=== PATIENT | male | born 1970 | race Caucasian/White ===

== ENCOUNTER 2021-01-15 13:06 | Emergency (ER) | payer SELFPAY ==
[2021-01-15 13:17] VITALS: BP 150/85; PULSE 98; RESP 16; TEMP 36.8; O2SAT 100; BMI 33.9
--- NOTE | 2021-01-15 13:30 | HMH.EDUTC ---
[facility] [place] Impression: Ingrown right greater toenail, Tinea pedis of right foot Disposition: Home, Self-Care Condition on Discharge: Good Instructions: DI for Ingrown Toenail Additional Instructions: Rest the extremity, Elevate the extremity as tolerated while you are resting. Take ibuprofen for pain. I sent in a prescription to your pharmacy. Follow up with Dr. Shay (podiatry). I put in a referral but you need to call his office and schedule an appointment. Follow up with your regular doctor. GO TO THE ER FOR ANY WORSENING SYMPTOMS Prescriptions: Clotrimazole [Athlete's Foot] 1 applicatio TP BID 14 Days #1 tube Transmission Status: Received by [facility] Amoxicillin/Potassium Clav [Augmentin 875-125 Tablet] 1 tab PO Q12H 10 Days #20 tab Transmission Status: Received by [facility] Mupirocin [Bactroban 2% Ointment 22gm tube] 1 applicatio TP TID 7 Days #1 tube Transmission Status: Received by [facility] Referrals: PCP,No [Primary Care Provider] - Time of Disposition: 13:37 Medical Decision Making - Medical Records Medical records reviewed: No: I reviewed the patient's medical records. - Johnny Inquiry Pt receiving controlled substance: No Vital Signs: 01/15/21 13:17 01/15/21 13:58 Temperature 98.2 F 98.2 F Temperature Source Oral Oral Pulse Rate 87 Pulse Rate [Right] 98 H Respiratory Rate 16 16 Blood Pressure 152/80 H Blood Pressure [Right Arm] 150/85 H Blood Pressure Mean [Right Arm] 106 Blood Pressure Source Automatic Cuff Blood Pressure Source [Right Arm] Automatic Cuff Blood Pressure Position Sitting Blood Pressure Position [Right Arm] Sitting 02 Sat by Pulse Oximetry 100 Oxygen Delivery Method Room Air Room Air [facility] [place] - General Stated complaint: ingrown toenail,right foot Time Seen by Provider: 01/15/21 13:30 Mode of Arrival: Ambulatory Source of Information: Patient Limitations: No Limitations Description of Symptoms (Recalled from Triage Doc. by RN): pt c/o ingrown toenail on his right great toe HEENT Symptoms (Recalled from RN notes): No Resp Symptoms (Recalled from RN notes): No Skin Symptoms (Recalled from RN notes): No MS Symptoms (Recalled from RN notes): No Functional Status (Recalled from RN notes): na - History of Present Illness Provider Complaint: He states that he has had an ingrown nail on his right great toe for the past 2 weeks. It is starting to get infected now. He has a history of getting ingrown nails, but he hasn't had one in several years. He denies any history of diabetes. - Related Data Previous Rx's Medication Instructions Recorded Amoxicillin/Potassium Clav 1 tab PO Q12H 10 Days #20 tab 01/15/21 [Augmentin 875-125 Tablet] Clotrimazole [Athlete's Foot] 1 applicatio TP BID 14 Days #1 tube 01/15/21 Mupirocin [Bactroban 2% Ointment 1 applicatio TP TID 7 Days #1 tube 01/15/21 22gm tube] Allergies Allergy/AdvReac Type Severity Reaction Status Date / Time No Known Allergies Allergy Unverified 10/05/17 14:12 - Worker's Comp Is this a Worker's Comp case?: No [facility] [place] History - Hepatitis A Screen Drug use history?: No High risk sexual behaviors?: No History of sexually transmitted infection?: No Currently employed?: No Childcare worker?: No Do you have indoor plumbing?: Yes Do you have electricity?: Yes Attestation statement:: This patient has been screened for Hepatitis A risk factors. I have reviewed the patient's past medical history: Yes ROS Obtained: Yes All systems reviewed & no additional complaints - Constitutional Constitutional: Denies chills, Denies fever(s), Denies poor appetite, Denies malaise - Eyes Eyes: Denies eye discharge - Musculoskeletal Musculoskeletal: Denies joint pain - Integumentary/Breasts Skin/Breast: Reports as per HPI - Neurologic Neurologic: Denies tingling/numbness/burning sensations Physical Exam - General
[2021-01-15 13:58] VITALS: BP 152/80; PULSE 87; RESP 16; TEMP 36.8; O2SAT 98
== END 2021-01-15 13:59 | disposition home or self-care (01) ==
PROVIDERS: Emergency Provider Nurse Practitioner Family
DX: L60.0 Ingrowing nail (principal); B35.3 Tinea pedis
CPT/HCPCS: 99202; G0463

== ENCOUNTER 2021-02-11 11:12 | Emergency (ER) | payer OTHER, SELFPAY ==
[2021-02-11 12:01] VITALS: BP 114/88; PULSE 63; RESP 18; TEMP 36.8; O2SAT 98; BMI 32.5
--- NOTE | 2021-02-11 12:14 | HMH.EDUTC ---
[facility] [place] Disposition Clinical Impression: Low back pain with sciatica Qualifiers: Chronicity: unspecified Back pain laterality: left Sciatica laterality: sciatica of left side Qualified Code(s): M54.42 - Lumbago with sciatica, left side Disposition: Home, Self-Care Condition on Discharge: Good Instructions: Low Back Pain, DI for Low Back Pain, DI for Sciatica, DI for Back Pain With Sciatica Additional Instructions: *Etodolac josee 6 hours with meal as needed for pain/inflammation *Not additional anti-inflammatory like motrin, ibuprofen aleve, advil with the above amount of Etodolac. You can still take Tylenol every 4 hours as needed if you need something else for pain *Ice 20 minutes every 2 hours for the first 48 hours after the initial injury followed by moist heat every 20 minutes 3-4 times a day to affected area *Muscle relaxer as prescribed as needed for muscle spasms but remember, it WILL cause drowsiness You cannot take it and drive, operate machinery or care for small children. *Keep this area active, no movement leads to more stiffness, However take it easy and avoid heavy lifting pushing or pulling *Follow up with you family doctor if no improvement for further treatment Start steriod dose pack tomorrow Follow up with Family Doctor or Chiropractor for further treatment and evaluation Return if needed Straight to ER if any life threatening symptoms Prescriptions: Etodolac [Etodolac 200mg Cap*] 200 mg PO Q6H PRN #20 cap PRN Reason: Moderate Pain Transmission Status: Received by [facility] methocarbamoL [Methocarbamol 500mg Tablet] 500 mg PO BID PRN #10 tab PRN Reason: Muscle Spasm Transmission Status: Received by [facility] predniSONE [Prednisone 5mg Tab Dose-Pack] 5 mg PO UD DOSE PK #21 pack Transmission Status: Received by [facility] Referrals: PCP,No [Primary Care Provider] - As needed Forms: Work/School Release Time of Disposition: 12:27 Medical Decision Making - Johnny Inquiry Pt receiving controlled substance: No Johnny was queried for this patient: No Vital Signs: 02/11/21 12:01 02/11/21 12:46 Temperature 98.3 F 98.3 F Temperature Source Oral Oral Pulse Rate 63 Pulse Rate [Right Brachial] 63 Respiratory Rate 18 18 Blood Pressure 114/88 Blood Pressure [Right Arm] 114/88 Blood Pressure Mean [Right Arm] 96 Blood Pressure Source Automatic Cuff Blood Pressure Source [Right Arm] Automatic Cuff Blood Pressure Position Sitting Blood Pressure Position [Right Arm] Sitting 02 Sat by Pulse Oximetry 98 Oxygen Delivery Method Room Air Room Air Orders (Tests/Meds): ED MEDICATIONS Discontinued Medications Generic Name Dose Route Start Last Admin Trade Name Marilee PRN Reason Stop Dose Admin Methylprednisolone Sodium Succinate 125 mg 02/11/21 12:21 02/11/21 12:30 Methylprednisolone Sod Succ 125mg Vial IM 02/11/21 12:22 125 mg ONCE ONE Administration [facility] [place] HPI - General Stated complaint: Left leg & hip pain Time Seen by Provider: 02/11/21 12:14 Mode of Arrival: Ambulatory Source of Information: Patient Limitations: No Limitations Description of Symptoms (Recalled from Triage Doc. by RN): PT REPORTS PAIN IN LEFT LOWER BACK THAT RADIATES DOWN LEFT LEG HEENT Symptoms (Recalled from RN notes): No Resp Symptoms (Recalled from RN notes): No Skin Symptoms (Recalled from RN notes): No MS Symptoms (Recalled from RN notes): Yes Functional Status (Recalled from RN notes): WNL - History of Present Illness Provider Complaint: Patient states that he has low back problems for years and woke up yesterday with pain in his left buttock area that radiates down into left leg States that pain is worse if he lays or sits on that side and feels like a toothache States that he took 800mg of Ibuprofen this morning around 10 but hasnt helped it much Denies loss of control of bowel or bladder - Related Data Previous Rx's Medication Instructions Recorded Lara
[2021-02-11 12:46] VITALS: BP 114/88; PULSE 63; RESP 18; TEMP 36.8; O2SAT 98
== END 2021-02-11 12:50 | disposition home or self-care (01) ==
PROVIDERS: Emergency Provider Nurse Practitioner
DX: M54.42 Lumbago with sciatica, left side (principal)
CPT/HCPCS: 96372; 99202; G0463

== ENCOUNTER 2021-10-15 09:22 | Emergency (ER) | payer OTHER, SELFPAY ==
[2021-10-15 10:50] VITALS: BP 0/0; PULSE 0; RESP 0; TEMP -17.7; TEMP 0
== END 2021-10-15 10:55 | disposition left against medical advice (07) ==
LOC: UTC 09:24
PROVIDERS: Emergency Provider Nurse Practitioner
DX: Z53.21 Procedure and treatment not carried out due to patient leaving prior to being seen by health care provider (principal)

== ENCOUNTER 2021-10-15 14:06 | Emergency (ER) | payer OTHER, SELFPAY ==
[2021-10-15 14:34] VITALS: BP 139/75; PULSE 88; RESP 18; TEMP 36.8; O2SAT 97; BMI 29.5
--- NOTE | 2021-10-15 14:41 | XR_ITS ---
PROCEDURE: XR KNEE LT 3V CLINICAL INDICATION: Left knee pain COMPARISON: No exams were available for comparison FINDINGS: No fracture or dislocation. No lytic or blastic change. There is normal mineralization. Minimal osteoarthritic change medial compartment Other findings:None. IMPRESSION: Minimal osteoarthritic change Dictated by: Emmanuel Wright MD 10/15/2021 15:03 Emmanuel Wright MD in OV 10/15/2021 15:03
--- NOTE | 2021-10-15 16:13 | HMH.EDUTC ---
[facility] [place] Clinical Impression: Pseudogout Disposition: Home, Self-Care Condition on Discharge: Good Instructions: Gout, DI for Gout, How to Apply an Luis Armando Wrap, Indomethacin Additional Instructions: Take medication as prescribed Follow up with family doctor if no improvement Straight to ER if any life threatening symptoms Return if needed Prescriptions: Indomethacin 50 mg PO TID #15 cap Transmission Status: Received by [facility] Referrals: Provider,Referral, MD [Primary Care Provider] - As needed Forms: Work/School Release Time of Disposition: 17:06 Medical Decision Making - Johnny Inquiry Pt receiving controlled substance: No Johnny was queried for this patient: No Vital Signs: 10/15/21 14:34 10/15/21 17:05 Temperature 98.2 F 98.2 F Temperature Source Oral Pulse Rate 88 Pulse Rate [Right Brachial] 88 Respiratory Rate 18 18 Blood Pressure 139/75 Blood Pressure [Right Arm] 139/75 Blood Pressure Mean [Right Arm] 96 Blood Pressure Source [Right Arm] Automatic Cuff Blood Pressure Position [Right Arm] Sitting 02 Sat by Pulse Oximetry 97 Oxygen Delivery Method Room Air - Lab Data Lab results reviewed: Yes: I reviewed the patient's lab results. Lab Results 10/15/21 16:17: Uric Acid 7.4 Orders (Tests/Meds): ED MEDICATIONS Discontinued Medications Generic Name Dose Route Start Last Admin Trade Name Marilee PRN Reason Stop Dose Admin Methylprednisolone Sodium Succinate 125 mg 10/15/21 17:01 10/15/21 17:04 Methylprednisolone Sod Succ 125mg Vial IM 10/15/21 17:02 125 mg ONCE ONE Administration - Radiology Data #1 Image(s): Knee Image Reviewed: Yes I have reviewed radiologist's interpretation IMPRESSION: Minimal osteoarthritic change [facility] [place]PI - General Stated complaint: left knee pain, no accident Time Seen by Provider: 10/15/21 16:13 Mode of Arrival: Ambulatory Source of Information: Patient Limitations: No Limitations Description of Symptoms (Recalled from Triage Doc. by RN): Left knee swelling x1 week constant pain - no known injury HEENT Symptoms (Recalled from RN notes): No Resp Symptoms (Recalled from RN notes): No Skin Symptoms (Recalled from RN notes): No MS Symptoms (Recalled from RN notes): Yes Functional Status (Recalled from RN notes): wnl - History of Present Illness Provider Complaint: Patient state that he has bad knees State that he works in [employer] and on his feet alot and he has been having swelling and mild redness to his left knee States that he hasnt done anything to hurt it that he is aware of States that today it was hurting worse - Related Data Previous Rx's Medication Instructions Recorded Amoxicillin/Potassium Clav 1 tab PO Q12H 10 Days #20 tab 01/15/21 [Augmentin 875-125 Tablet] Clotrimazole [Athlete's Foot] 1 applicatio TP BID 14 Days #1 tube 01/15/21 Mupirocin [Bactroban 2% Ointment 1 applicatio TP TID 7 Days #1 tube 01/15/21 22gm tube] Etodolac [Etodolac 200mg Cap*] 200 mg PO Q6H PRN #20 cap 02/11/21 methocarbamoL [Methocarbamol 500mg 500 mg PO BID PRN #10 tab 02/11/21 Tablet] predniSONE [Prednisone 5mg Tab 5 mg PO UD DOSE PK #21 pack 02/11/21 Dose-Pack] Indomethacin 50 mg PO TID #15 cap 10/15/21 Allergies Allergy/AdvReac Type Severity Reaction Status Date / Time No Known Allergies Allergy Verified 10/15/21 14:40 - Worker's Comp Is this a Worker's Comp case?: No [facility] History - Hepatitis A Screen Drug use history?: No High risk sexual behaviors?: No History of sexually transmitted infection?: No Currently employed?: No Childcare worker?: No Do you have indoor plumbing?: Yes Do you have electricity?: Yes Attestation statement:: This patient has been screened for Hepatitis A risk factors. I have reviewed the patient's past medical history: Yes ROS Obtained: Yes All systems reviewed & no additional complaints, Yes Systems reviewed as appropriate & no additi
[2021-10-15 16:45] LABS: Uric Acid 7.4 mg/dl (3.5-8.5)
[2021-10-15 17:05] VITALS: BP 139/75; PULSE 88; RESP 18; TEMP 36.8; O2SAT 97
== END 2021-10-15 17:12 | disposition home or self-care (01) ==
PROVIDERS: Emergency Provider Nurse Practitioner
DX: M10.062 Idiopathic gout, left knee (principal)
CPT/HCPCS: 73562; 84550; 96372; 99202; G0463

== ENCOUNTER → 2022-04-29 15:01 | Outpatient (CLI) | payer BC, SELFPAY ==
[2022-04-29 14:07] LABS: Basophils # 0.1 K/mm3 (0-0.2); Basophils % 0.9 % (0.1-2.0); Eosinophils # 0.1 K/mm3 (0.0-0.4); Eosinophils % 1.1 % (0.1-12.0); Hematocrit 45.7 % (42.0-52.0); Hemoglobin 14.8 g/dL (14.1-18.0); Lymphocytes # 1.6 K/mm3 (0.7-4.5); Lymphocytes % 23.9 % (10-50); Mean Corpuscular HGB Conc 32.4 g/dL (31.8-35.4); Mean Corpuscular Hemoglobin 30.9 pg (27.0-31.2); Mean Corpuscular Volume 95.3 fl (80-94); Mean Platelet Volume 10.7 fl (7.4-10.4); Monocytes # 0.4 K/mm3 (0.1-1.0); Monocytes % 6.1 % (1.7-9.3); Neutrophils # 4.6 K/mm3 (1.8-7.8); Platelet Count 289 K/mm3 (142-424); Red Cell Distribution Width 13.1 % (11.5-17.5); White Blood Count 6.7 K/mm3 (4.8-10.8)
[2022-04-29 14:08] LABS: Chloride 109 mmol/L (98-107); Potassium 4.2 mmoL/L (3.5-5.1); Sodium 140 mmol/L (136-145)
[2022-04-29 14:10] LABS: Alanine Aminotransferase 20 U/L (12-78); Aspartate Amino Transferase 23 U/L (17-59); Blood Urea Nitrogen 14 mg/dl (9-20); Estimated Glomerular Filt Rate 89 ml/min (>60); GFR (African American) 108 ML/MIN (>60)
[2022-04-29 14:11] LABS: Albumin Level 4.1 g/dl (3.5-5.0); Albumin/Globulin Ratio 1.7 (1.1-1.8); Alkaline Phosphatase 70 U/L (38-126); Anion Gap 10.2 mEq/L (5-15); Bilirubin,Total 0.4 mg/dl (0.2-1.3); Calcium 9.4 mg/dl (8.4-10.2); Carbon Dioxide 25 mmol/L (22.0-30.0); Chol/HDL Ratio 5.6 (1-3.5); Cholesterol 180 mg/dl (140-200); Globulin 2.4 g/dL (1.3-3.2); Glucose 106 mg/dl (74-100); HDL Cholesterol 32 mg/dl (40-60); Total Protein,Serum 6.5 g/dl (6.3-8.2); Triglycerides 167 mg/dl (30-150); VLDL Cholesterol 33 mg/dL (0-40)
[2022-04-29 14:23] LABS: Direct LDL Cholesterol 116.57 mg/dL (100-129)
[2022-04-29 14:26] LABS: 25-OH Vitamin D, Total 31.2 ng/mL (30-100)
[2022-04-29 14:43] LABS: Thyroid Stimulating Hormone 1.78 uIU/mL (0.465-4.68)
[2022-04-29 16:01] LABS: Prostate Specific Ag Screen 1.5 ng/ml (0.0-4.0)
== END ==
PROVIDERS: PCP Physician Assistant; Visit Provider Physician Assistant
DX: Z00.00 Encounter for general adult medical examination without abnormal findings (principal); E66.3 Overweight; Z68.31 Body mass index [BMI] 31.0-31.9, adult; Z76.89 Persons encountering health services in other specified circumstances; Z12.5 Encounter for screening for malignant neoplasm of prostate
CPT/HCPCS: 80053; 80061; 82306; 84443; 85025; G0103

== ENCOUNTER 2023-12-30 21:48 | Inpatient (IN) | payer BC, SELFPAY ==
[2023-12-30] VITALS (7 sets, daily range): BP systolic 119–139; BP diastolic 80–87; PULSE 89–120; RESP 18–22; TEMP 36.7–36.9; O2SAT 90–96; BMI 32.5
--- NOTE | 2023-12-30 22:08 | CT_ITS ---
PROCEDURE INFORMATION: Exam: CT Abdomen And Pelvis With Contrast Exam date and time: 12/30/2023 10:36 PM Age: 53 years old Clinical indication: Abdominal pain; Additional info: Lower abd pain TECHNIQUE: Imaging protocol: Computed tomography of the abdomen and pelvis with contrast. Radiation optimization: All CT scans at this facility use at least one of these dose optimization techniques: automated exposure control; mA and/or kV adjustment per patient size (includes targeted exams where dose is matched to clinical indication); or iterative reconstruction. Contrast material: ISOVUE; Contrast volume: 75 ml; Contrast route: IV; COMPARISON: No relevant prior studies available. FINDINGS: Liver: Mild fatty liver infiltration. No mass. Gallbladder and bile ducts: Normal. No calcified stones. No ductal dilation. Pancreas: Normal. No ductal dilation. Spleen: Normal. No splenomegaly. Adrenal glands: Normal. No mass. Kidneys and ureters: Normal. No hydronephrosis. Stomach and bowel: Distended stomach and dilated fluid-filled loops of small bowel with relative transition point to decompressed small bowel loops in right lower quadrant. Appendix: No evidence of appendicitis. Intraperitoneal space: Unremarkable. No free air. No significant fluid collection. Vasculature: Unremarkable. No abdominal aortic aneurysm. Lymph nodes: Unremarkable. No enlarged lymph nodes. Urinary bladder: Unremarkable as visualized. Reproductive: Unremarkable as visualized. Bones/joints: Unremarkable. No acute fracture. Soft tissues: Unremarkable. IMPRESSION: 1. Distended stomach and dilated loops of small bowel with relative decompression in right lower quadrant. Although possibly representing sequela of early small bowel obstruction, query symptoms of viral gastroenteritis. Correlation recommended. 2. Mild fatty liver infiltration.
--- NOTE | 2023-12-30 22:13 | ED_ITS ---
Discharge Plan Disposition Patient Disposition: Admitted Clinical Impressions Clinical Impression: Intractable abdominal pain, Nausea & vomiting Discharge ED Provider: Abram Garcia General Adult HPI <Abram Garcia MD - Last Filed: 12/30/23 22:18> General Chief complaint: Abdominal Pain Stated complaint: abd pain Time Seen by Provider: 12/30/23 22:03 Mode of Arrival: Ambulatory Source of Information: Patient Limitations: No Limitations Description of Symptoms (Recalled from ER Triage Doc. by RN): Pt presents to ED for ABD pain that started around lunch time. Pt states he had diarrhea earlier, took Pepto and got relief. Pt states nothing stops the pain and it runs all the way across his lower abdomen. Pt rates pain 9/10. History of Present Illness HPI narrative: 53-year-old presents today with lower abdominal pain and diarrhea. States the pain started suddenly and is progressively worsened over the lower abdomen. No history of colitis or diverticulitis. No constipation preceding this no hematuria frequency urgency or other urinary symptoms. Denies any significant past medical problems. Related Data Allergies Allergy/AdvReac Type Severity Reaction Status Date / Time No Known Allergies Allergy Verified 04/29/22 08:26 PFS <Abram Garcia MD - Last Filed: 12/30/23 22:18> [facility] Disclaimer: The information contained in this section may have been updated after the patient was seen, as this information can be updated by other users. Social History Smoking Status: Current every day smoker alcohol intake: former current occupational status: previously employed Travel in the last 8 weeks: None <Abram Garcia MD - Last Filed: 12/30/23 22:18> ROS Obtained: Yes All systems reviewed & no additional complaints except as documented Physical Exam <Abram Garcia MD - Last Filed: 12/30/23 22:18> General General appearance: alert and in no apparent distress Respiratory Respiratory exam: Present normal lung sounds bilaterally and respiratory distress Cardiovascular Cardiovascular exam: Present regular rate and normal rhythm Abdominal Exam Abdominal exam: Present distention, tenderness, guarding, rebound and other (Focally tender lower abdomen but patient does have rebound and guarding throughout the rest of the abdomen) Neurological Exam Neurological exam: Present alert and oriented X3 Medical Decision Making <Abram Garcia MD - Last Filed: 12/30/23 22:18> Johnny Inquiry Pt receiving controlled substance: No Vital Signs: 12/30/23 21:49 12/30/23 22:01 12/30/23 22:23 Temperature 98.3 F Temperature Source Oral Pulse Rate 101 H 94 H Pulse Rate [Left] 120 H Respiratory Rate 22 Blood Pressure 128/84 139/83 Blood Pressure [Right Arm] 133/83 Blood Pressure Mean 93 92 Blood Pressure Mean [Right Arm] 99 Blood Pressure Source [Right Arm] Automatic Cuff 02 Sat by Pulse Oximetry 96 90 L 96 Oxygen Delivery Method Room Air 12/30/23 22:30 12/30/23 22:45 Temperature Temperature Source Pulse Rate 94 H 98 H Pulse Rate [Left] Respiratory Rate Blood Pressure 125/87 127/80 Blood Pressure [Right Arm] Blood Pressure Mean 96 91 Blood Pressure Mean [Right Arm] Blood Pressure Source [Right Arm] 02 Sat by Pulse Oximetry 90 L 91 L Oxygen Delivery Method Lab Data Lab Results 12/30/23 22:12: WBC 10.3, RBC 4.83, Hgb 15.2, Hct 45.0, MCV 93.2, MCH 31.4 H, MCHC 33.7, RDW 12.9, Plt Count 248, MPV 8.8, Neut % (Auto) 90.2 H, Lymph % (Auto) 5.7 L, [place] % (Auto) 2.9, Eos % (Auto) 0.9, Baso % (Auto) 0.3, Neut # (Auto) 9.3 H, Lymph # (Auto) 0.6 L, [place] # (Auto) 0.3, Eos # (Auto) 0.1, Baso # (Auto) 0.0, Total Counted 100, Neutrophils % (Manual) 90 H, Lymphocytes % (Manual) 6 L, Monocytes % (Manual) 4, Platelet Estimate Normal, RBC Morphology Normal, Sodium 138, Potassium 3.8, Chloride 109 H, Carbon Dioxide 22, Anion Gap 10.8, BUN 22 H, Creatinine 1.00, Estimated Creat Clear 135, Estimated GFR 79, Est GFR ( Amer) 95, Glucose 115 H, Calcium 8.8, Total Bilirubin 0.8, AST 31, ALT 33, Alkaline Phosphatase 66, Total Protein 6.6, Albumin 4.1, Globulin 2.5, Albumin/Globulin Ratio 1.6, Lipase 145 12/30/23 22:12 12/30/23 22:12 Orders (Tests/Meds): ED MEDICATIONS Generic Name Dose Route Start Last Admin Trade Name Marilee PRN Reason Stop Dose Admin Acetaminophen 650 mg 12/30/23 23:24 Acetaminophen 325mg Tab PO 01/29/24 23:23 Q4HP PRN Fever or Mild Pain (1-3) Morphine Sulfate 2 mg 12/30/23 23:24 Morphine 2mg/Ml Syringe IV 01/29/24 23:23 Q2HP PRN Severe Pain (7-10) Sodium Chloride 10 ml 12/30/23 22:40 12/30/23 22:41 Sodium Chloride 0.9% 10ml Syr (Rad Only) IV 01/29/24 22:39 10 ml NEEDED PRN Administration Maintain IV Site Discontinued Medications Generic Name Dose Route Start Last Admin Trade Name Fresarahy PRN Reason Stop Dose Admin Lactated Ringer's 1,000 mls @ 999 mls/hr 12/30/23 22:15 12/30/23 22:19 Lactated Ringer's 1000 Ml Bag IV 12/30/23 23:15 999 mls/hr .Q1H1M [place] Administration Iopamidol 75 ml 12/30/23 22:40 12/30/23 22:41 Iopamidol-370 (76%);100ml Bottle IV 12/30/23 22:41 75 ml ONCE ONE Administration Ketorolac Tromethamine 15 mg 12/30/23 22:08 12/30/23 22:20 Ketorolac 30mg/Ml Vial IV 12/30/23 22:09 15 mg ONCE ONE Administration Ondansetron HCl 4 mg 12/30/23 22:08 12/30/23 22:20 Ondansetron 4mg/2ml Vial IV 12/30/23 22:09 4 mg ONCE ONE Administration ORDERS Category Date Time Status CT abdomen pelvis w con Stat Cat Scan 12/30/23 22:08 Completed CBC w/Auto Diff [Complete Blood Count Auto Diff] Stat Lab 12/30/23 22:12 Completed CMP [Comprehensive Metabolic Panel] Stat Lab 12/30/23 22:12 Completed Complete Blood Count Auto Diff AMLAB Lab 12/31/23 06:00 Ordered Comprehensive Metabolic Panel AMLAB Lab 12/31/23 06:00 Ordered Lactic Acid Stat Lab 12/30/23 22:08 Ordered Lipase Stat Lab 12/30/23 22:12 Completed Magnesium AMLAB Lab 12/31/23 06:00 Ordered Medical Decision Narrative: 53-year-old male with above history and physical. Concerning for possible peritonitis and perforation given the sudden onset of his symptoms and localization of the pain that initially started in the lower abdomen now with diffuse pain and some rebound and guarding. CT scan of the abdomen and pelvis with IV contrast have been ordered to specifically look for further pathology such as perforated viscus include diverticulitis perforated ulcer colitis etc. Will give IV fluids pain medicine nausea medicine he specifically asked does not give him opiates as he is a recovering addict therefore Toradol and Zofran fluids have been administered. <Yumiko Marsh, DO - Last Filed: 12/30/23 23:35> Vital Signs: 12/30/23 21:49 12/30/23 22:01 12/30/23 22:23 Temperature 98.3 F Temperature Source Oral Pulse Rate 101 H 94 H Pulse Rate [Left] 120 H Respiratory Rate 22 Blood Pressure 128/84 139/83 Blood Pressure [Right Arm] 133/83 Blood Pressure Mean 93 92 Blood Pressure Mean [Right Arm] 99 Blood Pressure Source [Right Arm] Automatic Cuff 02 Sat by Pulse Oximetry 96 90 L 96 Oxygen Delivery Method Room Air 12/30/23 22:30 12/30/23 22:45 Temperature Temperature Source Pulse Rate 94 H 98 H Pulse Rate [Left] Respiratory Rate Blood Pressure 125/87 127/80 Blood Pressure [Right Arm] Blood Pressure Mean 96 91 Blood Pressure Mean [Right Arm] Blood Pressure Source [Right Arm] 02 Sat by Pulse Oximetry 90 L 91 L Oxygen Delivery Method Lab Data Lab Results 12/30/23 22:12: WBC 10.3, RBC 4.83, Hgb 15.2, Hct 45.0, MCV 93.2, MCH 31.4 H, MCHC 33.7, RDW 12.9, Plt Count 248, MPV 8.8, Neut % (Auto) 90.2 H, Lymph % (Auto) 5.7 L, [place] % (Auto) 2.9, Eos % (Auto) 0.9, Baso % (Auto) 0.3, Neut # (Auto) 9.3 H, Lymph # (Auto) 0.6 L, [place] # (Auto) 0.3, Eos # (Auto) 0.1, Baso # (Auto) 0.0, Total Counted 100, Neutrophils % (Manual) 90 H, Lymphocytes % (Manual) 6 L, Monocytes % (Manual) 4, Platelet Estimate Normal, RBC Morphology Normal, Sodium 138, Potassium 3.8, Chloride 109 H, Carbon Dioxide 22, Anion Gap 10.8, BUN 22 H, Creatinine 1.00, Estimated Creat Clear 135, Estimated GFR 79, Est GFR ( Amer) 95, Glucose 115 H, Calcium 8.8, Total Bilirubin 0.8, AST 31, ALT 33, Alkaline Phosphatase 66, Total Protein 6.6, Albumin 4.1, Globulin 2.5, Albumin/Globulin Ratio 1.6, Lipase 145 Orders (Tests/Meds): ED MEDICATIONS Generic Name Dose Route Start Last Admin Trade Name Freq PRN Reason Stop Dose Admin Acetaminophen 650 mg 12/30/23 23:24 Acetaminophen 325mg Tab PO 01/29/24 23:23 Q4HP PRN Fever or Mild Pain (1-3) Morphine Sulfate 2 mg 12/30/23 23:24 Morphine 2mg/Ml Syringe IV 01/29/24 23:23 Q2HP PRN Severe Pain (7-10) Sodium Chloride 10 ml 12/30/23 22:40 12/30/23 22:41 Sodium Chloride 0.9% 10ml Syr (Rad Only) IV 01/29/24 22:39 10 ml NEEDED PRN Administration Maintain IV Site Discontinued Medications Generic Name Dose Route Start Last Admin Trade Name Freq PRN Reason Stop Dose Admin Lactated Ringer's 1,000 mls @ 999 mls/hr 12/30/23 22:15 12/30/23 22:19 Lactated Ringer's 1000 Ml Bag IV 12/30/23 23:15 999 mls/hr .Q1H1M [place] Administration Iopamidol 75 ml 12/30/23 22:40 12/30/23 22:41 Iopamidol-370 (76%);100ml Bottle IV 12/30/23 22:41 75 ml ONCE ONE Administration Ketorolac Tromethamine 15 mg 12/30/23 22:08 12/30/23 22:20 Ketorolac 30mg/Ml Vial IV 12/30/23 22:09 15 mg ONCE ONE Administration Ondansetron HCl 4 mg 12/30/23 22:08 12/30/23 22:20 Ondansetron 4mg/2ml Vial IV 12/30/23 22:09 4 mg ONCE ONE Administration ORDERS Category Date Time Status CT abdomen pelvis w con Stat Cat Scan 12/30/23 22:08 Completed CBC w/Auto Diff [Complete Blood Count Auto Diff] Stat Lab 12/30/23 22:12 Completed CMP [Comprehensive Metabolic Panel] Stat Lab 12/30/23 22:12 Completed Complete Blood Count Auto Diff AMLAB Lab 12/31/23 06:00 Ordered Comprehensive Metabolic Panel AMLAB Lab 12/31/23 06:00 Ordered Lactic Acid Stat Lab 12/30/23 22:08 Ordered Lipase Stat Lab 12/30/23 22:12 Completed Magnesium AMLAB Lab 12/31/23 06:00 Ordered Medical Decision Narrative: 53-year-old male with above history and physical. Concerning for possible peritonitis and perforation given the sudden onset of his symptoms and localization of the pain that initially started in the lower abdomen now with diffuse pain and some rebound and guarding. CT scan of the abdomen and pelvis with IV contrast have been ordered to specifically look for further pathology such as perforated viscus include diverticulitis perforated ulcer colitis etc. Will give IV fluids pain medicine nausea medicine he specifically asked does not give him opiates as he is a recovering addict therefore Toradol and Zofran fluids have been administered. Maximo DO: On my assumption of care of the patient, he continues to have pain. CT scan concerning for small bowel obstruction versus gastroenteritis. Given the patient's significant intractable pain and inability to tolerate oral intake, decision was made to admit him for observation and serial abdominal exams. I had an interactive discussion with Dr. Childs who accepted the patient for admission. Critical Care <Abram Garcia MD - Last Filed: 12/30/23 22:18> Critical Care Time Critical Care Time: No
[2023-12-30] MEDS: LACTATED RINGERS 1000ML 1,000 ML 999 ML IV (22:19)
[2023-12-30] MEDS: ONDANSETRON 4MG/2ML VIAL 4 MG IV (22:20)
[2023-12-30] MEDS: KETOROLAC 30MG/ML VIAL 15 MG IV (22:20)
[2023-12-30 22:21] LABS: Basophils % 0.3 % (0.1-2.0); Eosinophils # 0.1 K/mm3 (0.0-0.4); Eosinophils % 0.9 % (0.1-12.0); Hemoglobin 15.2 g/dL (14.1-18.0); Lymphocytes # 0.6 K/mm3 (0.7-4.5); Lymphocytes % 5.7 % (10-50); Mean Corpuscular HGB Conc 33.7 g/dL (31.8-35.4); Mean Corpuscular Hemoglobin 31.4 pg (27.0-31.2); Mean Corpuscular Volume 93.2 fl (80-94); Mean Platelet Volume 8.8 fl (7.4-10.4); Monocytes # 0.3 K/mm3 (0.1-1.0); Monocytes % 2.9 % (1.7-9.3); Neutrophils # 9.3 K/mm3 (1.8-7.8); Neutrophils % 90.2 % (37.0-80.0); Platelet Count 248 K/mm3 (142-424); Red Blood Count 4.83 M/mm3 (4.60-6.20); Red Cell Distribution Width 12.9 % (11.5-17.5); White Blood Count 10.3 K/mm3 (4.8-10.8)
[2023-12-30 22:25] LABS: Chloride 109 mmol/L (98-107); Potassium 3.8 mmoL/L (3.5-5.1); Sodium 138 mmol/L (136-145)
[2023-12-30 22:28] LABS: Alanine Aminotransferase 33 U/L (12-78); Albumin Level 4.1 g/dl (3.5-5.0); Albumin/Globulin Ratio 1.6 (1.1-1.8); Alkaline Phosphatase 66 U/L (38-126); Anion Gap 10.8 mEq/L (5-15); Aspartate Amino Transferase 31 U/L (17-59); Bilirubin,Total 0.8 mg/dl (0.2-1.3); Blood Urea Nitrogen 22 mg/dl (9-20); Calcium 8.8 mg/dl (8.4-10.2); Carbon Dioxide 22 mmol/L (22.0-30.0); Creatinine Clearance Estimated 135 mL/min (50-200); Estimated Glomerular Filt Rate 79 ml/min (>60); GFR (African American) 95 ML/MIN (>60); Globulin 2.5 g/dL (1.3-3.2); Glucose 115 mg/dl (74-100); Lipase 145 U/L (23-300); Total Protein,Serum 6.6 g/dl (6.3-8.2)
[2023-12-30 22:35] LABS: MANUAL DIFFERENTIAL MANUAL DIFFERENTIAL (MANUAL DIFF)
[2023-12-30] MEDS: SODIUM CHLORIDE 0.9% 10ML SYR (RAD ONLY) 10 ML IV (22:41)
[2023-12-30] MEDS: IOPAMIDOL-370 (76%);100ML BOTTLE 75 ML IV (22:41)
[2023-12-30 22:49] LABS: Lymphocytes % 6 % (10-50); Monocytes % 4 % (2-9); Neutrophils % 90 % (42-76); Platelet Estimate Normal; RBC Morphology Normal; Total Cells Counted 100
--- NOTE | 2023-12-30 23:25 | P.HP_ITS ---
History of Present Illness *Admission Date: 12/30/23 *Reason for visit:: Abdominal pain, nausea and vomiting *History of present illness: Patient is a 53-year-old male with history of opiate dependence, clean for 4 years, otherwise no significant medical history. Presented to the ER for a bdominal pain that started earlier today. Had an episode of diarrhea earlier today and took some Pepto. Got some relief. Said the pain in his abdomen began a little while later. Was present for 20 minutes or so and got better. Intense at times, rated at 9 out of 10. Had some emesis that helped his stomach feel little bit better. No known sick contacts. No history of colitis or diverticulitis. No blood in his vomit or stool. On evaluation, labs reassuring but exam quite remarkable for significant tenderness. Given CT findings of SBO versus enteritis, medicine was consulted for admission and further management. Patient states he is feeling little better after he arrives to the floor. Is tender throughout the upper abdomen with no guarding but has questionable rebound with palpation right lower quadrant where pain radiates on rebound in the left upper abdomen. Afebrile. Alert and oriented x 4. Requested no opiates due to his history of addiction. [facility] Disclaimer: The information contained in this section may have been updated after the patient was seen, as this information can be updated by other users. Surgical History (Updated 12/31/23 @ 00:41 by Ivania Sousa RN) H/O arthroscopy of knee Social History (Updated 12/31/23 @ 00:41 by Ivania Sousa RN) Smoking Status: Former smoker alcohol intake: former current occupational status: employed and previously employed Travel in the last 8 weeks: None Review of Systems Review of Systems Review of systems (narrative): 14 point review of systems performed, pertinent positives and negatives as per HPI Meds Home Medications and Allergies New Prescriptions to Start Prescriptions: Allergies Allergy/AdvReac Type Severity Reaction Status Date / Time No Known Allergies Allergy Verified 04/29/22 08:26 Exam Data for Last 24 hours Vital signs and Labs for Last 24 Hours: Temp Pulse Resp BP Pulse Ox O2 Del Method 98.3 F 98 H 22 127/80 91 L Room Air 12/30/23 21:49 12/30/23 22:45 12/30/23 21:49 12/30/23 22:45 12/30/23 22:45 12/30/23 21:49 Laboratory Results - last 24 hr 12/30/23 22:12: WBC 10.3, RBC 4.83, Hgb 15.2, Hct 45.0, MCV 93.2, MCH 31.4 H, MCHC 33.7, RDW 12.9, Plt Count 248, MPV 8.8, Neut % (Auto) 90.2 H, Lymph % (Auto) 5.7 L, [place] % (Auto) 2.9, Eos % (Auto) 0.9, Baso % (Auto) 0.3, Neut # (Auto) 9.3 H, Lymph # (Auto) 0.6 L, [place] # (Auto) 0.3, Eos # (Auto) 0.1, Baso # (Auto) 0.0, Total Counted 100, Neutrophils % (Manual) 90 H, Lymphocytes % (Manual) 6 L, Monocytes % (Manual) 4, Platelet Estimate Normal, RBC Morphology N ormal, Sodium 138, Potassium 3.8, Chloride 109 H, Carbon Dioxide 22, Anion Gap 10.8, BUN 22 H, Creatinine 1.00, Estimated Creat Clear 135, Estimated GFR 79, Est GFR ( Amer) 95, Glucose 115 H, Calcium 8.8, Total Bilirubin 0.8, AST 31, ALT 33, Alkaline Phosphatase 66, Total Protein 6.6, Albumin 4.1, Globulin 2.5, Albumin/Globulin Ratio 1.6, Lipase 145 I & O for Last 24 hours: Intake & Output 12/27/23 12/28/23 12/29/23 12/30/23 23:59 23:59 23:59 23:59 Weight 108.862 kg Constitutional Constitutional: no acute distress, obese and cooperative *Routine HEENT Exam Head: Present normocephalic Eye: Present EOMI and PERRL ENT: Present mucous membranes moist *Routine Neck Exam Neck: Present supple; Absent lymphadenopathy *Routine Respiratory Exam Respiratory: Present CTA bilaterally *Routine Cardiovascular Exam Cardiovascular: Present RRR *Routine Abdominal Exam Abdominal: Present soft, normoactive bowel sounds and tenderness (Diffuse, worse in upper abdomen. Tender with palpation through majority of abdomen except for right lower abdomen. Hurts when pressed on right lower abdomen but when let go causes pain in left side of abdomen.); Absent rebound or guarding *Routine Rectal Exam Rectal:: deferred *Routine Genitalia Exam Genitalia:: deferred *Routine Extremities Exam Extremities: Absent cyanosis, clubbing or edema *Routine Skin Exam Skin: Present warm; Absent rash *Routine Neurological Exam Neurological: Present alert, oriented X3 and moving all extremities; Absent altered mental status Assessment and Plan *Assessment and plan (1) Intractable abdominal pain: Status: Acute Category: Medical Code(s): R10.9 - Unspecified abdominal pain (2) Nausea & vomiting: Status: Acute Category: Medical Code(s): R11.2 - Nausea with vomiting, unspecified (3) Gastroenteritis: Status: Acute Category: Medical Code(s): K52.9 - Noninfective gastroenteritis and colitis, unspecified (4) Obesity (BMI 30.0-34.9): Status: Chronic Category: Medical Code(s): E66.9 - Obesity, unspecified Plan 53-year-old male on no current medications. Presented to the ER for intractable abdominal pain, nausea and vomiting. Workup in the ER concerning for gastroenteritis versus early SBO. Given acuity to abdomen and significant findings on exam, medicine was consulted for admission. Discussed case with ER physician, in light of remarkable exam disproportionate to lab findings, request admission for serial exams and monitoring overnight. Medicine agreed to admit. Patient hemodynamically stable on evaluation. Does have tender abdomen with low concern for peritonitis. Problems addressed as follows: Gastroenteritis Intractable abdominal pain Nausea and vomiting - White cell count normal, AST, ALT, alkaline phosphatase within normal range. Lipase normal at 145. Kidney function electrolytes normal with BUN of 22 creatinine 1.0. Repeat CBC, CMP, magnesium ordered for the morning. -Low concern for hepatitis or pancreatitis -CT of abdomen personally reviewed, has a distended stomach with some dilated loops of small bowel. Concerning for early SBO versus gastroenteritis. Patient does report still passing gas. Not concern for shweta obstruction, most suspicious for ileus. -Clear liquid diet, monitor for p.o. intake. -Zofran 4 mg as needed every 8 hours for nausea -Toradol 30 mg IV every 6 hours for severe pain Exam is reassuring, tolerating p.o. intake, labs reassuring in the morning, anticipate discharge tomorrow with recommended close follow-up with PCP in the coming days and symptomatic treatment Full code Clear liquid diet
--- NOTE | 2023-12-30 23:27 | PC.NURSE ---
fuel house attendant called for bed to admit pt
--- NOTE | 2023-12-30 23:39 | PC.NURSE ---
Attempted report. Ivania is busy with another patient and will call me back.
--- NOTE | 2023-12-30 23:44 | PC.NURSE ---
[id number] RECEIVED PHONE REPORT FROM KELSEY RN/ED NURSE. 53 YO MALE WITH POSSIBLE BOWEL OBSTRUCTION TO BE ADMITTED TO ROOM 201.
--- NOTE | 2023-12-31 00:24 | PC.NURSE ---
pt arrived to floor at this time
[2023-12-31 00:36] VITALS: BP 118/88; PULSE 91; RESP 18; TEMP 36.6; O2SAT 96; BMI 33.0
[2023-12-31 00:55] VITALS: O2SAT 96
[2023-12-31 01:14] LABS: Lactic Acid 0.8 mmol/L (0.7-2.1)
--- NOTE | 2023-12-31 03:51 | PC.NURSE ---
has rested well. No complaints of pain. No reports of nausea, vomiting. may have clear liquids as tolerated.
[2023-12-31 04:00] VITALS: BP 138/84; PULSE 87; RESP 18; TEMP 36.7; O2SAT 99; BMI 33.0
[2023-12-31 07:12] LABS: Basophils % 0.4 % (0.1-2.0); Eosinophils % 0.6 % (0.1-12.0); Hematocrit 42.6 % (42.0-52.0); Hemoglobin 14.1 g/dL (14.1-18.0); Lymphocytes # 0.5 K/mm3 (0.7-4.5); Lymphocytes % 7.2 % (10-50); Mean Corpuscular Hemoglobin 31.1 pg (27.0-31.2); Mean Corpuscular Volume 94.3 fl (80-94); Mean Platelet Volume 8.9 fl (7.4-10.4); Monocytes # 0.3 K/mm3 (0.1-1.0); Monocytes % 4.6 % (1.7-9.3); Neutrophils # 6.5 K/mm3 (1.8-7.8); Neutrophils % 87.2 % (37.0-80.0); Platelet Count 202 K/mm3 (142-424); Red Blood Count 4.51 M/mm3 (4.60-6.20); Red Cell Distribution Width 12.9 % (11.5-17.5); White Blood Count 7.4 K/mm3 (4.8-10.8)
[2023-12-31 07:24] LABS: Alanine Aminotransferase 22 U/L (12-78); Albumin Level 3.5 g/dl (3.5-5.0); Albumin/Globulin Ratio 1.5 (1.1-1.8); Alkaline Phosphatase 60 U/L (38-126); Anion Gap 10.7 mEq/L (5-15); Aspartate Amino Transferase 25 U/L (17-59); Bilirubin,Total 0.8 mg/dl (0.2-1.3); Blood Urea Nitrogen 21 mg/dl (9-20); Calcium 8.1 mg/dl (8.4-10.2); Carbon Dioxide 23 mmol/L (22.0-30.0); Chloride 109 mmol/L (98-107); Creatinine Clearance Estimated 152 mL/min (50-200); Estimated Glomerular Filt Rate 89 ml/min (>60); GFR (African American) 108 ML/MIN (>60); Globulin 2.4 g/dL (1.3-3.2); Glucose 106 mg/dl (74-100); Magnesium 1.8 mg/dl (1.6-2.3); Potassium 3.7 mmoL/L (3.5-5.1); Sodium 139 mmol/L (136-145); Total Protein,Serum 5.9 g/dl (6.3-8.2)
[2023-12-31 07:27] LABS: MANUAL DIFFERENTIAL MANUAL DIFFERENTIAL (MANUAL DIFF)
[2023-12-31 08:00] VITALS: BP 134/78; PULSE 93; RESP 22; TEMP 36.7; O2SAT 95
[2023-12-31 08:13] LABS: Lymphocytes % 11 % (10-50); Monocytes % 5 % (2-9); Neutrophils % 84 % (42-76); Total Cells Counted 100
[2023-12-31 08:14] LABS: Platelet Estimate Normal; RBC Morphology Normal
[2023-12-31] MEDS: LACTATED RINGERS 1000ML 1,000 ML 999 ML IV (09:50)
[2023-12-31 16:00] VITALS: BP 137/73; PULSE 82; RESP 22; TEMP 36.5; O2SAT 97
--- NOTE | 2023-12-31 16:15 | P.PN_ITS ---
Subjective *Date: 12/31/23 *Time: 16:15 Interval history: Patient is seen and evaluated at the bedside, denies chest pain shortness of breath. He continues to have diarrhea, around 5 bowel movements today. Patient denied fever chills Exam Data for Last 24 hours Vital signs and Labs for Last 24 Hours: Temp Pulse Resp BP Pulse Ox O2 Del Method 98.1 F 93 H 22 134/78 95 Room Air 12/31/23 08:00 12/31/23 08:00 12/31/23 08:00 12/31/23 08:00 12/31/23 08:00 12/31/23 13:51 Laboratory Results - last 24 hr 12/30/23 22:12: WBC 10.3, RBC 4.83, Hgb 15.2, Hct 45.0, MCV 93.2, MCH 31.4 H, MCHC 33.7, RDW 12.9, Plt Count 248, MPV 8.8, Neut % (Auto) 90.2 H, Lymph % (Auto) 5.7 L, [place] % (Auto) 2.9, Eos % (Auto) 0.9, Baso % (Auto) 0.3, Neut # (Auto) 9.3 H, Lymph # (Auto) 0.6 L, [place] # (Auto) 0.3, Eos # (Auto) 0.1, Baso # (Auto) 0.0, Total Counted 100, Neutrophils % (Manual) 90 H, Lymphocytes % (Manual) 6 L, Monocytes % (Manual) 4, Platelet Estimate Normal, RBC Morphology Normal, Sodium 138, Potassium 3.8, Chloride 109 H, Carbon Dioxide 22, Anion Gap 10.8, BUN 22 H, Creatinine 1.00, Estimated Creat Clear 135, Estimated GFR 79, Est GFR ( Amer) 95, Glucose 115 H, Calcium 8.8, Total Bilirubin 0.8, AST 31, ALT 33, Alkaline Phosphatase 66, Total Protein 6.6, Albumin 4.1, Globulin 2 .5, Albumin/Globulin Ratio 1.6, Lipase 145 12/31/23 01:00: Lactate 0.8 12/31/23 06:47: WBC 7.4 D, RBC 4.51 L, Hgb 14.1, Hct 42.6, MCV 94.3 H, MCH 31.1, MCHC 33.0, RDW 12.9, Plt Count 202, MPV 8.9, Neut % (Auto) 87.2 H, Lymph % (Auto) 7.2 L, [place] % (Auto) 4.6, Eos % (Auto) 0.6, Baso % (Auto) 0.4, Neut # (Auto) 6.5, Lymph # (Auto) 0.5 L, [place] # (Auto) 0.3, Eos # (Auto) 0.0, Baso # (Auto) 0.0, Total Counted 100, Neutrophils % (Manual) 84 H, Lymphocytes % (Manual) 11, Monocytes % (Manual) 5, Platelet Estimate Normal, RBC Morphology Normal, Sodium 139, Potassium 3.7, Chloride 109 H, Carbon Dioxide 23, Anion Gap 10.7, BUN 21 H, Creatinine 0.90, Estimated Creat Clear 152, Estimated GFR 89, Est GFR ( Amer) 108, Glucose 106 H, Calcium 8.1 L, Magnesium 1.8, Total Bilirubin 0.8, AST 25, ALT 22 D, Alkaline Phosphatase 60, Total Protein 5.9 L, Albumin 3.5 D, Globulin 2.4, Albumin/Globulin Ratio 1.5 I & O for Last 24 hours: Intake & Output 12/28/23 12/29/23 12/30/23 12/31/23 23:59 23:59 23:59 23:59 Intake Total 1838 / 183 Output Total 0 / 0 Balance 1838 / 183 Weight 108.862 kg 110.478 kg Constitutional Constitutional: no acute distress *Routine HEENT Exam Head: Present normocephalic Eye: Present EOMI and PERRL ENT: Present mucous membranes moist *Routine Neck Exam Neck: Present supple; Absent lymphadenopathy *Routine Respiratory Exam Respiratory: Present CTA bilaterally *Routine Cardiovascular Exam Cardiovascular: Present RRR *Routine Abdominal Exam Abdominal: Present soft and normoactive bowel sounds; Absent tenderness *Routine Extremities Exam Extremities: Absent cyanosis, clubbing or edema *Routine Skin Exam Skin: Present warm; Absent rash *Routine Neurological Exam Neurological: Present alert and oriented X3 Assessment and Plan *Assessment and plan (1) Intractable abdominal pain: Status: Acute Category: Medical Code(s): R10.9 - Unspecified abdominal pain (2) Nausea & vomiting: Status: Acute Category: Medical Code(s): R11.2 - Nausea with vomiting, unspecified (3) Gastroenteritis: Status: Acute Category: Medical Code(s): K52.9 - Noninfective gastroenteritis and colitis, unspecified (4) Obesity (BMI 30.0-34.9): Status: Chronic Category: Medical Code(s): E66.9 - Obesity, unspecified Plan Patient is a 53-year-old male who presented to the hospital due to complaints of diarrhea. Assessment Intractable nausea vomiting and diarrhea suspect viral gastroenteritis Early onset ACS Plan S/p IV fluid bolus Continue to monitor electrolytes and replace CT abdomen and pelvis reviewed-does show early onset ileus versus SBO Advance diet as tolerated Monitor overnight DVT prophylaxis-Lovenox
[2023-12-31 20:00] VITALS: BP 140/85; PULSE 84; RESP 16; TEMP 36.6; O2SAT 98
--- NOTE | 2024-01-01 03:42 | PC.NURSE ---
PATIENT HAS RESTED WELL. STOOL SPECIMEN SENT EARLY IN THE SHIFT, RESULTS PENDING. REPORTS SEVERAL LOOSE AND LIQUID GREENISH STOOL. STOMACH CRAMPS WHE TRYING TO EAT HIS JELLO.VITALS STABLE/AFEBRILE.
[2024-01-01 04:00] VITALS: BP 142/65; PULSE 78; RESP 16; TEMP 36.7; O2SAT 92; BMI 33.5
[2024-01-01 07:50] VITALS: BP 124/81; PULSE 78; RESP 21; TEMP 36.7; O2SAT 96
--- NOTE | 2024-01-01 08:43 | XR_ITS ---
PROCEDURE INFORMATION: Exam: XR Abdomen Exam date and time: 01/01/2024 8:53 AM Age: 53 years old Clinical indication: Abdominal pain; Generalized TECHNIQUE: Imaging protocol: Radiologic exam of the abdomen. Views: Frontal supine view of the abdomen. 1 View. COMPARISON: CT ABDOMEN PELVIS W CON 12/30/2023 10:36 PM FINDINGS: Gastrointestinal tract: Gaseous distension of the stomach. No gaseous distension of small bowel or colon. Bones/joints: Unremarkable. IMPRESSION: Gaseous distension of the stomach. Gastric outlet obstruction can not be excluded.
--- NOTE | 2024-01-01 10:29 | CT_ITS ---
FINAL REPORT TECHNIQUE: Thin section axial images were obtained from the lung bases to the pubic symphysis without IV contrast. Coronal reconstruction images were obtained from the axial data. Exam was performed using dose reduction technique. CLINICAL HISTORY: bowel obstruction, with oral contrast COMPARISON: 12/30/2023 FINDINGS: There is worsening bilateral lower lobe atelectasis. There are no renal or ureteral stones. There is no hydronephrosis. The unenhanced liver is homogeneous. There may be sludge in the gallbladder. The spleen, adrenal glands, and pancreas are without acute abnormality. The stomach is less distended compared to the prior study. There continues to be small bowel bowel dilatation actively involving more loops than on the prior study. There is no discrete transition point. There is contrast to the terminal ileum. The appendix is normal. There is no lymphadenopathy or ascites. No acute osseous abnormality is identified. IMPRESSION: Persistent small bowel dilatation without discrete transition point. This could represent ileus or enteritis. Consider follow-up KUB to ensure contrast reaches the colon. Reviewed, Interpreted and Dictated by Daniela Koehler MD Transcribed by Yolis Michael Authenticated and [facility]
--- NOTE | 2024-01-01 10:41 | EXP.PN ---
Subjective *Date: 01/01/24 *Time: 10:41 Interval history: Patient is seen and evaluated at the bedside, denied chest pain, shortness of breath. He continues to have diarrhea, around 5 bowel movements again today. Patient denied fever chills He says he has abdominal pain especially after eating, he has watery diarrhea Exam Data for Last 24 hours Vital signs and Labs for Last 24 Hours: Temp Pulse Resp BP Pulse Ox O2 Del Method 98.1 F 78 21 124/81 96 Room Air 01/01/24 07:50 01/01/24 07:50 01/01/24 07:50 01/01/24 07:50 01/01/24 07:50 01/01/24 07:50 I & O for Last 24 hours: Intake & Output 12/29/23 12/30/23 12/31/23 01/01/24 23:59 23:59 23:59 23:59 Intake Total 2439 / 2439 510 / 510 Output Total 0 / 0 Balance 2438 / 2438 510 / 510 Weight 108.862 kg 110.478 kg 112.536 kg Constitutional Constitutional: no acute distress *Routine HEENT Exam Head: Present normocephalic Eye: Present EOMI and PERRL ENT: Present mucous membranes moist *Routine Neck Exam Neck: Present supple; Absent lymphadenopathy *Routine Respiratory Exam Respiratory: Present CTA bilaterally *Routine Cardiovascular Exam Cardiovascular: Present RRR *Routine Abdominal Exam Abdominal: Present soft, normoactive bowel sounds and tenderness Comments: left side of abdomen is tender per patient *Routine Extremities Exam Extremities: Absent cyanosis, clubbing or edema *Routine Skin Exam Skin: Present warm; Absent rash *Routine Neurological Exam Neurological: Present alert and oriented X3 Assessment and Plan *Assessment and plan (1) Intractable abdominal pain: Status: Acute Category: Medical Code(s): R10.9 - Unspecified abdominal pain (2) Nausea & vomiting: Status: Acute Category: Medical Code(s): R11.2 - Nausea with vomiting, unspecified (3) Gastroenteritis: Status: Acute Category: Medical Code(s): K52.9 - Noninfective gastroenteritis and colitis, unspecified (4) Obesity (BMI 30.0-34.9): Status: Chronic Category: Medical Code(s): E66.9 - Obesity, unspecified Plan Patient is a 53-year-old male who presented to the hospital due to complaints of diarrhea. Assessment Intractable nausea vomiting and diarrhea suspect viral gastroenteritis Early onset ileus / SBO Plan NPO start IV fluids CT abd pelvis with constrast, spoke to radiology Continue to monitor electrolytes and replace Xray KUB non-specific Advance diet as tolerated Monitor overnight DVT prophylaxis-Lovenox, f/u on CT Abd pelvis
[2024-01-01] MEDS: DIATRIZOATE MEGLUMINE(GASTROGRAFIN) 66%-10% 120ML 20 ML PO (12:16)
[2024-01-01 16:00] VITALS: BP 129/83; PULSE 91; RESP 24; TEMP 36.7; O2SAT 100
[2024-01-01 20:00] VITALS: BP 159/93; PULSE 81; RESP 16; TEMP 36.8; O2SAT 96
[2024-01-02 04:00] VITALS: BP 122/65; PULSE 72; RESP 17; TEMP 36.6; O2SAT 96; BMI 32.6
--- NOTE | 2024-01-02 05:37 | PC.NURSE ---
Patient has rested through the night. Has not complained of pain, nausea. Stated he only had BM once at the beginning of the shift. No other issues noted
--- NOTE | 2024-01-02 07:18 | PC.NURSE ---
spoke to Scar about consult
[2024-01-02 07:51] LABS: Basophils # 0.1 K/mm3 (0-0.2); Basophils % 0.8 % (0.1-2.0); Eosinophils # 0.1 K/mm3 (0.0-0.4); Eosinophils % 1.7 % (0.1-12.0); Hematocrit 47.3 % (42.0-52.0); Hemoglobin 15.8 g/dL (14.1-18.0); Lymphocytes # 1.9 K/mm3 (0.7-4.5); Lymphocytes % 26.6 % (10-50); Mean Corpuscular HGB Conc 33.5 g/dL (31.8-35.4); Mean Corpuscular Hemoglobin 31.8 pg (27.0-31.2); Mean Platelet Volume 9.2 fl (7.4-10.4); Monocytes # 0.5 K/mm3 (0.1-1.0); Monocytes % 7.1 % (1.7-9.3); Neutrophils # 4.5 K/mm3 (1.8-7.8); Neutrophils % 63.7 % (37.0-80.0); Platelet Count 226 K/mm3 (142-424); Red Blood Count 4.98 M/mm3 (4.60-6.20); Red Cell Distribution Width 13.1 % (11.5-17.5); White Blood Count 7.1 K/mm3 (4.8-10.8)
[2024-01-02 08:00] VITALS: BP 150/84; PULSE 67; RESP 16; TEMP 36.8; O2SAT 100
[2024-01-02 08:14] LABS: Anion Gap 11.8 mEq/L (5-15); Blood Urea Nitrogen 11 mg/dl (9-20); Calcium 8.7 mg/dl (8.4-10.2); Carbon Dioxide 23 mmol/L (22.0-30.0); Chloride 108 mmol/L (98-107); Creatinine Clearance Estimated 135 mL/min (50-200); Estimated Glomerular Filt Rate 79 ml/min (>60); GFR (African American) 95 ML/MIN (>60); Glucose 100 mg/dl (74-100); Potassium 3.8 mmoL/L (3.5-5.1); Sodium 139 mmol/L (136-145)
--- NOTE | 2024-01-02 09:26 | P.CONS_ITS ---
History of Present Illness *Admission Date: 12/30/23 *Reason for visit:: Ileus *History of present illness: This is a 53-year-old gentleman seen in consultation from the primary service for evaluation regarding persistent ileus . The patient is currently having diarrhea with multiple bowel movements per day. He complains of some vague crampy abdominal pain . Please see HPI forwarded from admission H&P/emergency department evaluation below. From admission H&P/emergency department evaluation: Patient is a 53-year-old male with history of opiate dependence, clean for 4 years, otherwise no significant medical history. Presented to the ER for abdominal pain that started earlier today. Had an episode of diarrhea earlier today and took some Pepto. Got some relief. Said the pain in his abdomen began a little while later. Was present for 20 minutes or so and got better. Intense at times, rated at 9 out of 10. Had some emesis that helped his stomach feel little bit better. No known sick contacts. No history of colitis or diverticulitis. No blood in his vomit or stool. On evaluation, labs reassuring but exam quite remarkable for significant tenderness. Given CT findings of SBO versus enteritis, medicine was consulted for admission and further management. Patient states he is feeling little better after he arrives to the floor. Is tender throughout the upper abdomen with no guarding but has questionable rebound with palpation right lower quadrant where pain radiates on rebound in the left upper abdomen. Afebrile. Alert and oriented x 4. Requested no opiates due to his history of addiction. [facility] Disclaimer: The information contained in this section may have been updated after the patient was seen, as this information can be updated by other users. Surgical History (Updated 12/31/23 @ 00:41 by Ivania Sousa RN) H/O arthroscopy of knee Social History (Updated 12/31/23 @ 00:41 by Ivania Sousa RN) Smoking Status: Former smoker alcohol intake: former current occupational status: employed and previously employed Travel in the last 8 weeks: None Meds Home Medications and Allergies Home Medications Medication Instructions Recorded Confirmed Type No Known Home Medications 12/31/23 12/31/23 History New Prescriptions to Start Prescriptions: Allergies Allergy/AdvReac Type Severity Reaction Status Date / Time No Known Allergies Allergy Verified 04/29/22 08:26 Exam (Inpt) Vital signs and Labs for Last 24 Hours: Temp Pulse Resp BP Pulse Ox O2 Del Method 98.2 F 67 16 150/84 H 100 Room Air 01/02/24 08:00 01/02/24 08:00 01/02/24 08:00 01/02/24 08:00 01/02/24 08:00 01/02/24 08:00 Laboratory Results - last 24 hr 01/02/24 07:36: WBC 7.1, RBC 4.98, Hgb 15.8, Hct 47.3, MCV 95.0 H, MCH 31.8 H, MCHC 33.5, RDW 13.1, Plt Count 226, MPV 9.2, Neut % (Auto) 63.7, Lymph % (Auto) 26.6, [place] % (Auto) 7.1, Eos % (Auto) 1.7, Baso % (Auto) 0.8, Neut # (Auto) 4.5, Lymph # (Auto) 1.9, [place] # (Auto) 0.5, Eos # (Auto) 0.1, Baso # (Auto) 0.1, Sodium 139, Potassium 3.8, Chloride 108 H, Carbon Dioxide 23, Anion Gap 11.8, B UN 11 D, Creatinine 1.00, Estimated Creat Clear 135, Estimated GFR 79, Est GFR ( Amer) 95, Glucose 100, Calcium 8.7 I & O for Labs for Last 24 Hours: Intake & Output 12/30/23 12/31/23 01/01/24 01/02/24 11:59 11:59 11:59 11:59 Intake Total 1599 / 1599 1350 / 1350 585 / 585 Output Total 0 / 0 1 / 1 0 / 0 Balance 1599 / 1599 1349 / 1349 585 / 585 Weight 243 lb 8.997 oz 248 lb 1.6 oz 241 lb 1.6 oz Constitutional: no acute distress Respiratory: Absent respiratory distress Cardiac: Absent Tachycardia GI: Present soft and tenderness (Mild global tenderness/discomfort with deep palpation); Absent distention Results Labs 01/02/24 07:36 01/02/24 07:36 Labs: Laboratory Results - last 24 hr 01/02/24 07:36: WBC 7.1, RBC 4.98, Hgb 15.8, Hct 47.3, MCV 95.0 H, MCH 31.8 H, MCHC 33.5, RDW 13.1, Plt Count 226, MPV 9.2, Neut % (Auto) 63.7, Lymph % (Auto) 26.6, [place] % (Auto) 7.1, Eos % (Auto) 1.7, Baso % (Auto) 0.8, Neut # (Auto) 4.5, Lymph # (Auto) 1.9, [place] # (Auto) 0.5, Eos # (Auto) 0.1, Baso # (Auto) 0.1, Sodium 139, Potassium 3.8, Chloride 108 H, Carbon Dioxide 23, Anion Gap 11.8, B UN 11 D, Creatinine 1.00, Estimated Creat Clear 135, Estimated GFR 79, Est GFR ( Amer) 95, Glucose 100, Calcium 8.7 Imaging Abdominal x-ray: report reviewed and image reviewed CT scan - abdomen: report reviewed and image reviewed CT scan - pelvis: report reviewed and image reviewed Assessment and Plan *Assessment and plan (1) Diarrhea: Status: Acute Qualifiers: Diarrhea type: unspecified type Qualified Code(s): R19.7 - Diarrhea, unspecified Category: Medical Code(s): R19.7 - Diarrhea, unspecified (2) Gastroenteritis: Status: Acute Category: Medical Code(s): K52.9 - Noninfective gastroenteritis and colitis, unspecified Plan The patient has no evidence of mechanical obstruction per CT scan or plain films. The patient is currently having diarrhea and has been diagnosed with gastroenteritis. Findings on recent CT scan are likely revealing the evolution of the patient's gastroenteritis. Serial CT scans unlikely to be beneficial at this point (unless new or worsening symptomatology noted).
--- NOTE | 2024-01-02 11:23 | EXP.PN ---
Subjective *Date: 01/02/24 *Time: 11:23 Interval history: Patient is seen and evaluated at the bedside, denied chest pain, shortness of breath. He had around 3 bowel movements today., better than yesterday Patient denied fever chills His abdominal pain has improved per patient and he wants to go home Exam Data for Last 24 hours Vital signs and Labs for Last 24 Hours: Temp Pulse Resp BP Pulse Ox O2 Del Method 98.2 F 67 16 150/84 H 100 Room Air 01/02/24 08:00 01/02/24 08:00 01/02/24 08:00 01/02/24 08:00 01/02/24 08:00 01/02/24 08:00 Laboratory Results - last 24 hr 01/02/24 07:36: WBC 7.1, RBC 4.98, Hgb 15.8, Hct 47.3, MCV 95.0 H, MCH 31.8 H, MCHC 33.5, RDW 13.1, Plt Count 226, MPV 9.2, Neut % (Auto) 63.7, Lymph % (Auto) 26.6, [place] % (Auto) 7.1, Eos % (Auto) 1.7, Baso % (Auto) 0.8, Neut # (Auto) 4.5, Lymph # (Auto) 1.9, [place] # (Auto) 0.5, Eos # (Auto) 0.1, Baso # (Auto) 0.1, Sodium 139, Potassium 3.8, Chloride 108 H, Carbon Dioxide 23, Anion Gap 11.8, BUN 11 D, Creatinine 1.00, Estimated Creat Clear 135, Estimated GFR 79, Est GFR ( Amer) 95, Glucose 100, Calcium 8.7 I & O for Last 24 hours: Intake & Output 12/30/23 12/31/23 01/01/24 01/02/24 23:59 23:59 23:59 23:59 Intake Total 2439 / 2439 1095 / 1095 0 / 0 Output Total / 0 / 0 0 / 0 Balance 2437 / 243 1095 / 1095 0 / 0 Weight 108.862 kg 110.478 kg 112.536 kg 109.361 kg Constitutional Constitutional: no acute distress *Routine HEENT Exam Head: Present normocephalic Eye: Present EOMI and PERRL ENT: Present mucous membranes moist *Routine Neck Exam Neck: Present supple; Absent lymphadenopathy *Routine Respiratory Exam Respiratory: Present CTA bilaterally *Routine Cardiovascular Exam Cardiovascular: Present RRR *Routine Abdominal Exam Abdominal: Present soft and normoactive bowel sounds; Absent tenderness *Routine Extremities Exam Extremities: Absent cyanosis, clubbing or edema *Routine Skin Exam Skin: Present warm; Absent rash *Routine Neurological Exam Neurological: Present alert and oriented X3 Assessment and Plan *Assessment and plan (1) Intractable abdominal pain: Status: Resolved Category: Medical Code(s): R10.9 - Unspecified abdominal pain (2) Nausea & vomiting: Status: Resolved Category: Medical Code(s): R11.2 - Nausea with vomiting, unspecified (3) Gastroenteritis: Status: Acute Category: Medical Code(s): K52.9 - Noninfective gastroenteritis and colitis, unspecified (4) Obesity (BMI 30.0-34.9): Status: Chronic Category: Medical Code(s): E66.9 - Obesity, unspecified Plan Patient is a 53-year-old male who presented to the hospital due to complaints of diarrhea. Assessment Intractable nausea vomiting and diarrhea suspect viral gastroenteritis Early onset ileus / SBO Plan start regular diet CT abd pelvis with contrast, no change, no pancreatitis/obstruction GS consulted - no SBO or ileus per surgery Continue to monitor electrolytes and replace stool pathogens pending start immodium PRN and Bentyl DVT prophylaxis-Lovenox, potential DC today if able to tolerate regular diet, on imodium PRN
[2024-01-02] MEDS: DICYCLOMINE 10MG CAPSULE 10 MG PO (12:26)
[2024-01-02] MEDS: LOPERAMIDE 2MG CAPSULE 2 MG PO (12:26)
--- NOTE | 2024-01-02 14:38 | EXP.DC.SUM ---
General Admission date:: 01/01/24 Discharge date: 01/02/24 HPI HPI HPI: This is a 53-year-old gentleman seen in consultation from the primary service for evaluation regarding persistent ileus . The patient is currently having diarrhea with multiple bowel movements per day. He complains of some vague crampy abdominal pain . Please see HPI forwarded from admission H&P/emergency department evaluation below. From admission H&P/emergency department evaluation: Patient is a 53-year-old male with history of opiate dependence, clean for 4 years, otherwise no significant medical history. Presented to the ER for abdominal pain that started earlier today. Had an episode of diarrhea earlier today and took some Pepto. Got some relief. Said the pain in his abdomen began a little while later. Was present for 20 minutes or so and got better. Intense at times, rated at 9 out of 10. Had some emesis that helped his stomach feel little bit better. No known sick contacts. No history of colitis or diverticulitis. No blood in his vomit or stool. On evaluation, labs reassuring but exam quite remarkable for significant tenderness. Given CT findings of SBO versus enteritis, medicine was consulted for admission and further management. Patient states he is feeling little better after he arrives to the floor. Is tender throughout the upper abdomen with no guarding but has questionable rebound with palpation right lower quadrant where pain radiates on rebound in the left upper abdomen. Afebrile. Alert and oriented x 4. Requested no opiates due to his history of addiction. Hospital Course Hospital Course Hospital Course: see same date progress note per RN patient is tolerating diet and has no nausea vomiting after eating, his diarrhea has imrproved and patient wanst to be discharged. will dc Exam Data for Last 24 hours Vital signs and Labs for Last 24 Hours: Temp Pulse Resp BP Pulse Ox O2 Del Method 98.2 F 67 16 150/84 H 100 Room Air 01/02/24 08:00 01/02/24 08:00 01/02/24 08:00 01/02/24 08:00 01/02/24 08:00 01/02/24 08:00 Laboratory Results - last 24 hr 01/02/24 07:36: WBC 7.1, RBC 4.98, Hgb 15.8, Hct 47.3, MCV 95.0 H, MCH 31.8 H, MCHC 33.5, RDW 13.1, Plt Count 226, MPV 9.2, Neut % (Auto) 63.7, Lymph % (Auto) 26.6, [place] % (Auto) 7.1, Eos % (Auto) 1.7, Baso % (Auto) 0.8, Neut # (Auto) 4.5, Lymph # (Auto) 1.9, [place] # (Auto) 0.5, Eos # (Auto) 0.1, Baso # (Auto) 0.1, Sodium 139, Potassium 3.8, Chloride 108 H, Carbon Dioxide 23, Anion Gap 11.8, BUN 11 D, Creatinine 1.00, Estimated Creat Clear 135, Estimated GFR 79, Est GFR ( Amer) 95, Glucose 100, Calcium 8.7 I & O for Last 24 hours: Intake & Output 12/30/23 12/31/23 01/01/24 01/02/24 23:59 23:59 23:59 23:59 Intake Total 2439 / 2439 1095 / 1095 585 / 585 Output Total 0 / 0 0 / 0 Balance 2438 / 2438 1095 / 1095 585 / 585 Weight 108.862 kg 110.478 kg 112.536 kg 109.361 kg Results Data Completed and Pending Labs on day of discharge: Labs from last 24 hours 01/02/24 07:36 WBC 7.1 RBC 4.98 Hgb 15.8 Hct 47.3 MCV 95.0 H MCH 31.8 H MCHC 33.5 RDW 13.1 Plt Count 226 MPV 9.2 Neut % (Auto) 63.7 Lymph % (Auto) 26.6 [place] % (Auto) 7.1 Eos % (Auto) 1.7 Baso % (Auto) 0.8 Neut # (Auto) 4.5 Lymph # (Auto) 1.9 [place] # (Auto) 0.5 Eos # (Auto) 0.1 Baso # (Auto) 0.1 Sodium 139 Potassium 3.8 Chloride 108 H Carbon Dioxide 23 Anion Gap 11.8 BUN 11 D Creatinine 1.00 Estimated Creat Clear 135 Estimated GFR 79 Est GFR ( Amer) 95 Glucose 100 Calcium 8.7 DS: Diagnosis Discharge Diagnosis (1) Intractable abdominal pain: Status: Resolved Code(s): R10.9 - Unspecified abdominal pain (2) Nausea & vomiting: Status: Resolved Code(s): R11.2 - Nausea with vomiting, unspecified (3) Gastroenteritis: Status: Acute Code(s): K52.9 - Noninfective gastroenteritis and colitis, unspecified (4) Obesity (BMI 30.0-34.9): Status: Chronic Code(s): E66.9 - Obesity, unspecified Meds Home Medications and Allergies Home Medications Medication Instructions Recorded Confirmed Type dicyclomine 10 mg capsule 10 mg PO QID PRN abdominal pain 3 01/02/24 Rx days #9 caps loperamide 2 mg capsule 2 mg PO NEEDED PRN Diarrhea 5 01/02/24 Rx days #10 caps New Prescriptions to Start Prescriptions: dicyclomine Umair Hahn loperamide Umair Hahn Allergies Allergy/AdvReac Type Severity Reaction Status Date / Time No Known Allergies Allergy Verified 04/29/22 08:26 Discharge Plan Disposition Patient Disposition: Home, Self-Care Condition: Fair Discharge Order Discharge Orders: Discharge Order (Routine); Ordered 01/02/24 Ordered By: Umair Hahn Follow up Plan Follow up with: Ramila Soler PA [Primary Care Provider] - 1 week Prescriptions/Medication Reconciliation: New loperamide 2 mg Capsule 2 mg PO NEEDED PRN (Reason: Diarrhea) 5 Days Qty: 10 0RF dicyclomine 10 mg capsule 10 mg PO QID PRN (Reason: abdominal pain) 3 Days Qty: 9 0RF Problem Reconciliation Problems Reviewed?: Yes Patient Discharge Instructions ACTIVITY: Ambulate as tolerated DIET: continue same diet Patient Instructions: DI for Abdominal Pain-Adult, DI for Nausea -- Adult, DI for Vomiting -- Adult Providers Primary Care Provider: Ramila Soler Admit Provider: Umair Hahn Attending Provider: Umair Hahn
--- NOTE | 2024-01-04 14:51 | CARE MANAGER ---
Contacted patient related to hospital discharge. He is picking up his medication this afternoon and I transferred him to [facility] to schedule follow up appointment. APRYL Vilchis
== END 2024-01-02 15:00 | disposition home or self-care (01) | DRG 392 ==
LOC: ER 23:24 → 2ND 12-31 03:32
PROVIDERS: Internal Medicine Adolescent Medicine; Nurse Practitioner Critical Care Medicine; Admitting Provider Internal Medicine; Emergency Provider Student in an Organized Health Care Education/Training Program; PCP Physician Assistant; Visit Provider Internal Medicine
DX: K52.9 Noninfective gastroenteritis and colitis, unspecified (principal); Z68.32 Body mass index [BMI] 32.0-32.9, adult; Z87.891 Personal history of nicotine dependence; E66.9 Obesity, unspecified
CPT/HCPCS: 36415; 74018; 74176; 74177; 80048; 80053; 83605; 83690; 83735; 85007; 85025; 87045; 99285; G0378; J2405; Q9967

== ENCOUNTER 2024-07-11 07:20 | Day surgery (SDC) | payer BC, SELFPAY ==
[2024-07-06 15:50] VITALS: BMI 33.7
[2024-07-11 13:38] VITALS: BP 142/96; PULSE 82; RESP 18; TEMP 36.3; O2SAT 97
[2024-07-11] MEDS: LACTATED RINGERS 1000ML 1,000 ML 25 ML IV (13:46)
--- NOTE | 2024-07-11 14:00 | EXP.ANES.CKL ---
[facility] Disclaimer: The information contained in this section may have been updated after the patient was seen, as this information can be updated by other users. Surgical History H/O vasectomy H/O arthroscopy of knee Family History Other Bladder cancer Breast cancer Cancer Ovarian cancer Social History Smoking Status: Former smoker alcohol intake: former substance use type: denies use current occupational status: employed Travel in the last 8 weeks: None caffeine: Yes [facility] Anesthesia Checklist Patient Identification Patient Identification: Arm Band and Verbal (Name & ) Structural Data Admitted From: Home Planned Operative Procedure/s: Colonoscopy Consent for Planned Operative Procedure(s) Verified: Yes Verified Documents: Surgical Consent and History and Physical NPO Status Verified Time NPO: 00:00 Additional verifications Anesthesia Reactions: No Airway Assessment Mallampati Score:: Class II C-Spine Mobility Assessed: Yes TMJ Mobility Assessed: Yes Dentition: Good Dentition Neurological Assessment Level of Consciousness: Awake Hx Seizures: No Numbness or tingling in extremities: No Anesthesia Plan Anesthesia Risk discussed: Yes Anesthesia Plan: Verified ASA Class: II Anesthesia Type: MAC
--- NOTE | 2024-07-11 14:52 | P.PCN_ITS ---
Procedure: Date: 07/11/24 Patient Date of :: 1970 Procedure Performed:: Colonoscopy Indications:: Screening Note: The patient had a short-stay hospitalization at [facility] in December of this year due to abdominal pain and diarrhea. He states that his symptoms have essentially resolved; however, he does have occasional bloating . Performing Provider:: Alexander Abbott MD Referring Provider:: . Sedation:: Monitored anesthesia care Procedure:: After informed consent was obtained the patient was taken to the endoscopy suite. Sedation ensued after the patient was transferred to the left lateral decubitus position. Pulse, blood pressure, and oxygen saturation were monitored throughout the procedure. Digital rectal exam revealed no significant abnormality. The colonoscope was placed in position. The entire colon was evaluated. The colonoscope was carefully removed and the patient was transferred to recovery in stable condition. Please see findings and specimens below for detail. Findings:: Bowel preparation relatively poor Hemorrhoidal tags Mild prostatic nodularity Recommendations:: Short-term repeat colonoscopy will alternate/extended bowel preparation warranted. Likely defer to the gastroenterology service (see below). Consider gastroenterology consultation secondary to abdominal bloating . Complications:: No immediate with the exception of relatively poor bowel preparation Estimated blood obtained (mL): 0 Colonoscopy Component Colonoscopy Component Was a colonoscopy performed during today's procedure?: Yes Recommended follow up colonoscopy of at least 10 years?: No If no, follow up colonoscopy recommended in ___ years?: (See above) Reason for not recommending >/= 10 yr follow-up interval?: (See above)
[2024-07-11 14:55] VITALS: O2SAT 97
[2024-07-11 15:22] VITALS: BP 108/67; PULSE 66; RESP 18; TEMP 36.3; O2SAT 91
[2024-07-11 15:40] VITALS: BP 114/71; PULSE 79; RESP 18; O2SAT 95
[2024-07-11 15:52] VITALS: BP 127/70; PULSE 76; RESP 18; O2SAT 95
== END 2024-07-11 15:52 | disposition home or self-care (01) ==
PROVIDERS: PCP Physician Assistant; Visit Provider Surgery
PROC: 0DJD8ZZ Inspection of Lower Intestinal Tract, Via Natural or Artificial Opening Endoscopic (ICD-10-PCS; CPT 45378; principal; 2024-07-11 08:30)
DX: Z12.11 Encounter for screening for malignant neoplasm of colon (principal); K64.9 Unspecified hemorrhoids
CPT/HCPCS: 45378; J7120

== ENCOUNTER 2024-11-02 12:00 | Day surgery (SDC) | payer BC, SELFPAY ==
[2024-10-31 14:29] VITALS: BMI 33.9
[2024-11-02 12:23] VITALS: BP 120/84; PULSE 102; RESP 17; TEMP 36.2; O2SAT 99
[2024-11-02] MEDS: LACTATED RINGERS 1000ML 1,000 ML 25 ML IV (12:27)
--- NOTE | 2024-11-02 13:17 | P.PNANES_ITS ---
[facility] Disclaimer: The information contained in this section may have been updated after the patient was seen, as this information can be updated by other users. Medical History Diarrhea Surgical History (Updated 11/02/24 @ 12:22 by Kristina Bhagat RN) History of colonoscopy H/O vasectomy H/O arthroscopy of knee Family History Other Bladder cancer Breast cancer Cancer Ovarian cancer Social History Smoking Status: Former smoker alcohol intake: former substance use type: denies use current occupational status: employed Travel in the last 8 weeks: None caffeine: Yes Have you lived/traveled outside [place] in past 30 days?: No Contact w/someone who lives/traveled outside US past 30 days?: No Exposure to someone with infectious disease in past 14 days?: No Do you have a fever (greater than 100.4 F or 38 C)?: No Have you tested positive for COVID-19: No Exposed to someone with COVID-19 in past 14 days?: No Do you have a sore throat?: No Do you have a cough?: No Do you have any weakness?: No Do you have any diarrhea?: No Are you experiencing any unusual bleeding?: No Do you have any muscle aches/pain?: No Do you have any abdominal pain?: No Are you experiencing loss of taste or smell?: No [facility] Anesthesia Checklist Patient Identification Patient Identification: Arm Band Structural Data Admitted From: Home Planned Operative Procedure/s: Colonoscopy Consent for Planned Operative Procedure(s) Verified: Yes Verified Documents: Surgical Consent and History and Physical NPO Status Verified Time NPO: 00:00 Additional verifications Anesthesia Reactions: No Airway Assessment Mallampati Score:: Class II C-Spine Mobility Assessed: Yes TMJ Mobility Assessed: Yes Dentition: Good Dentition Neurological Assessment Level of Consciousness: Awake, Alert and Appropriate Anesthesia Plan Anesthesia Risk discussed: Yes Anesthesia Plan: Verified ASA Class: II Anesthesia Type: MAC
[2024-11-02 14:01] VITALS: O2SAT 100
--- NOTE | 2024-11-02 14:07 | EXP.HP ---
History of Present Illness *Admission Date: 11/02/24 *Reason for visit:: Postprandial diarrhea/lower abdominal discomfort *History of present illness: Mr. Larsen is a 54-year-old gentleman who is here for diagnostic evaluation of chronic diarrhea, bloating and lower abdominal discomfort. The patient did have a poorly prepped colonoscopy fairly recently with inadequate visualization of the colon. The examination is deemed medically necessary for diagnostic colonoscopy. The patient has been seen, interviewed and examined prior to the procedure by both myself and the anesthesia provider. [facility] Disclaimer: The information contained in this section may have been updated after the patient was seen, as this information can be updated by other users. Medical History Diarrhea Surgical History (Updated 11/02/24 @ 12:22 by Kristina Bhagat RN) History of colonoscopy H/O vasectomy H/O arthroscopy of knee Family History Other Bladder cancer Breast cancer Cancer Ovarian cancer Social History Smoking Status: Former smoker alcohol intake: former substance use type: denies use current occupational status: employed Travel in the last 8 weeks: None caffeine: Yes Have you lived/traveled outside [place] in past 30 days?: No Contact w/someone who lives/traveled outside [place] past 30 days?: No Exposure to someone with infectious disease in past 14 days?: No Do you have a fever (greater than 100.4 F or 38 C)?: No Have you tested positive for COVID-19: No Exposed to someone with COVID-19 in past 14 days?: No Do you have a sore throat?: No Do you have a cough?: No Do you have any weakness?: No Do you have any diarrhea?: No Are you experiencing any unusual bleeding?: No Do you have any muscle aches/pain?: No Do you have any abdominal pain?: No Are you experiencing loss of taste or smell?: No Other Medical History Have you received the Flu Vaccine for this season: No Have you received the Pneumonia Vaccine: No Review of Systems Review of Systems Review of systems (narrative): Negative *Cardiovascular Comments: Negative *Gastrointestinal Comments: Negative *Genitourinary Comments: Negative *Musculoskeletal Comments: Negative *Neurologic Comments: Negative Meds Home Medications and Allergies Home Medications ?Medication ?Instructions ?Recorded ?Confirmed ?Type dicyclomine 10 mg capsule 10 mg PO BID #60 caps 08/22/24 11/02/24 Rx phentermine 37.5 mg tablet 37.5 mg PO DAILY 10/31/24 11/02/24 History topiramate 25 mg tablet 25 mg PO DAILY 10/31/24 11/02/24 History New Prescriptions to Start Prescriptions: Allergies Allergy/AdvReac Type Severity Reaction Status Date / Time No Known Allergies Allergy Verified 11/02/24 12:23 Exam Data for Last 24 hours Vital signs and Labs for Last 24 Hours: Temp Pulse Resp BP Pulse Ox O2 Del Method O2 Flow Rate 97.2 F L 102 H 17 120/84 99 Nasal Cannula 5 11/02/24 12:23 11/02/24 12:23 11/02/24 12:23 11/02/24 12:23 11/02/24 12:23 11/02/24 14:01 11/02/24 14:01 I & O for Last 24 hours: Intake & Output 10/30/24 10/31/24 11/01/24 11/02/24 23:59 23:59 23:59 23:59 Weight 250 lb *Routine HEENT Exam Head: Present normocephalic Eye: Present EOMI and PERRL ENT: Present mucous membranes moist *Routine Neck Exam Neck: Present supple *Routine Respiratory Exam Respiratory: Present CTA bilaterally *Routine Cardiovascular Exam Cardiovascular: Present RRR *Routine Abdominal Exam Abdominal: Present soft and normoactive bowel sounds; Absent tenderness *Routine Rectal Exam Rectal:: deferred *Routine Genitalia Exam Genitalia:: deferred *Routine Extremities Exam Extremities: Absent cyanosis, clubbing or edema *Routine Skin Exam Skin: Present warm; Absent rash *Routine Neurological Exam Neurological: Present alert and oriented X3 Assessment and Plan *Assessment and plan (1) Abdominal cramps: Status: Acute Category: Medical Code(s): R10.9 - Unspecified abdominal pain (2) Bloating: Status: Acute Category: Medical Code(s): R14.0 - Abdominal distension (gaseous) (3) Partial small bowel obstruction: Status: Acute Category: Medical Code(s): K56.600 - Partial intestinal obstruction, unspecified as to cause (4) Diarrhea: Status: Acute Qualifiers: Diarrhea type: unspecified type Qualified Code(s): R19.7 - Diarrhea, unspecified Category: Medical Code(s): R19.7 - Diarrhea, unspecified Plan A/P: 1. Bloating, lower abdominal and generalized abdominal discomfort, diarrhea and prior partial small bowel obstruction is the preprocedural diagnosis. The patient will be anesthetized/sedated using MAC sedation. The patient has been seen and examined. Cardiac and lung assessment prior to the examination is stable. Proceed with planned diagnostic colonoscopy
--- NOTE | 2024-11-02 14:09 | [facility].PROCNOTE ---
[facility] Procedure Note Date: 11/02/24 Time: 14:22 Procedure Note:: Colonoscopy Procedure Report: Colonoscopy Endoscopist: Munir Thakkar II, MD Referring physician: Ramila Soler PA-C Date of Procedure: November 02, 2024 Equipment: Olympus 190 variable stiffness pediatric colonoscope Sedation: MAC sedation Indication: Mr. Larsen is a 54-year-old gentleman who is here for diagnostic colonoscopy. The patient has had postprandial diarrhea with crampy discomfort that occurs 20 minutes after eating. He had moderate bloating and gassiness with loose stools. He also reported some obstipation with excessive wiping. He had an attempted colonoscopy in June 2024 (Alexander Abbtot M.D.) and the bowel preparation was poor limiting visibility in the ileum was not identified. The patient has had a prior CAT scan in December 2023 that showed persistent small bowel dilation and possible early small bowel obstruction. The patient did see me in the office in August 2024. I did recommend dietary measures and psyllium fiber (Konsyl and probiotic Align). Also recommended dicyclomine. The patient is clinically improved and reports no rectal bleeding or weight loss. Procedure: Prior to the procedure, a history and physical exam was performed, and patient's medications and allergies were reviewed. The risks, benefits and alternatives of the sedation and procedure were discussed with the patient. All questions were answered and informed consent was obtained. The patient was brought to the procedure room. Patient identification and proposed procedure were verified by the physician and the nurse. The patient was placed in a left lateral decubitus position and the scope was passed under direct vision. Throughout the procedure, the patient's blood pressure, pulse, and oxygen saturations were monitored continuously. The colonoscopy was accomplished without difficulty. The patient tolerated the procedure well. Findings: On digital rectal examination there was normal rectal tone. There were no external hemorrhoids. The colonoscope was introduced through the anal canal to the rectum and advanced to the cecum. The ileocecal valve and appendiceal orifice were identified. The scope was advanced a short distance into the ileum which appeared grossly normal. The scope was then withdrawn into the colon. The cecum, ascending, transverse, descending, sigmoid and rectum were grossly normal. There were no mucosal abnormalities identified. Upon retroflexion within the rectum there were grade 1-2 internal hemorrhoids.The preparation was excellent throughout with [place] Preparation Score of 9. The cecal time was 10 minutes. Impression: 1. Normal colonoscopy with intubation of the terminal ileum 2. Grade 1-2 internal hemorrhoids Plan: The patient is clinically improved with dietary measures, fiber, probiotic and dicyclomine. He does still get some bloating and lower abdominal discomfort. I would like for him to complete testing for EPI with fecal elastase. If elastase testing is normal, I would consider referral to dietitian for low FODMAP diet.
[2024-11-02 14:27] VITALS: BP 110/79; PULSE 94; RESP 18; TEMP 36.5; O2SAT 91
[2024-11-02 14:37] VITALS: BP 109/79; PULSE 85; RESP 18; O2SAT 92
[2024-11-02 14:47] VITALS: BP 111/79; PULSE 98; RESP 18; O2SAT 98
[2024-11-02 15:07] VITALS: BP 120/68; PULSE 84; RESP 18; O2SAT 98
== END 2024-11-02 15:07 | disposition home or self-care (01) ==
PROVIDERS: PCP Physician Assistant; Visit Provider Internal Medicine Gastroenterology
PROC: (CPT 45378; principal; 2024-11-02 13:30)
DX: K56.600 Partial intestinal obstruction, unspecified as to cause (principal); R10.9 Unspecified abdominal pain; R14.0 Abdominal distension (gaseous); R19.7 Diarrhea, unspecified; K64.8 Other hemorrhoids
CPT/HCPCS: 45378; J7120